=== PATIENT | female | born 1940 | race Caucasian/White ===

== ENCOUNTER 2016-05-27 08:57 | Emergency (ER) | payer MEDICARE, OTHER ==
[~2016-05-27] VITALS: Ht 177.8 cm; Wt 95.3 kg
[~2016-05-27 08:57] MED LIST: AMLODIPINE10 MG PO; ASPIRIN 81MG TA81 MG PO; GEMFIBROZIL600 MG PO; HYDROCODONE-APA1 TA1 PO; LEVOFLOXACIN 7750 M1 PO; LEVOTHYROXIN0.112 M1 PO; LISINOPRIL10 MG PO; METFORMIN1000 MG PO; PRAVACHOL20 MG PO; ZOLPIDEM5 MG PO
[2016-05-27] MEDS ORDERED: ZANTAC 150150 MG PO (09:23)
[2016-05-27] MEDS ORDERED: AMITRIPTYLINE 225 MG PO (09:24)
[2016-05-27] MEDS ORDERED: PLAVIX 75MG TAB75 MG PO (09:24)
[2016-05-27] MEDS ORDERED: MOBIC15 MG PO (09:25)
[2016-05-27] MEDS ORDERED: MIRALAX17 GM/PACK PO (10:06)
--- NOTE | 2016-05-27 10:08 | [facility]gent [facility] Report ---
History of Present Issue Date/Time Seen by Provider 05/27/16 0940 Visit Reason Pt arrived:Walked Presenting Problem:PT STATES SHE HAS HAD LRQ PAIN SINCE LAST THURSDAY, PAIN HAS NOT GONE AWAY. PT STATES SHE HAS BEEN BELCHING AND SHE TOOK A STOOL SOFTNER TO HAVE A BOWEL MOVEMENT. PT STATES SHE VOMITED COFFEE YESTERDAY. MOSTLY JUST HAS PAIN. Location if Accident: Onset of symptoms date/time:/ or onset unknown for:MEDICAL HX UNKNOWN Have you (or family members/close friends) recently traveled outside the [place]? N If Yes, where/when: Have you had exposure to infectious disease within the past month? TB? Other? Specify: Patient state that she was having issues with constipation and took an over the counter stool softner states that ever since then she has not had a good bowel movement and been having some achy like pain in her right lower abdomen states that she noticed after she eat she was belching more and had her gallbladder removed years ago. States that she thinks she is still constipated ALLERGIES Coded Allergies: No Known Allergies (05/27/16) Home Medications Active Scripts HYDROCODONE 5MG/APAP 325MG (Hydrocodon-Acetaminophen 5-325) 1 TAB PO Q6HP PRN MODERATE PAIN #120 TAB Prov: 06/13/14 Levofloxacin (Levofloxacin 750MG) 750 MG PO DAILY #7 TABLET Prov: 06/13/14 Reported Medications Levothyroxine Sodium (Levothyroxine 0.112MG) 0.112 MG PO DAILY Lisinopril 10 MG PO DAILY Amlodipine Besylate (Amlodipine) 10 MG PO DAILY Gemfibrozil (GEMFIBROZIL 600MG) 600 MG PO BID METFORMIN HCL (Metformin) 1,000 MG PO BID ASPIRIN (Aspirin) 81 MG PO DAILY Zolpidem Tartrate (Zolpidem 5MG) 5 MG PO QHS Pravastatin Sodium (Pravachol) 20 MG PO QHS #30 Ranitidine Hcl (Zantac) 150 MG PO DAILY Amitriptyline Hcl (Amitriptyline) 25 MG PO QHS CLOPIDOGREL BISULFATE (PLAVIX) 75 MG PO DAILY Meloxicam (Mobic 15MG) 15 MG PO BID History Medical History General CAD? No Angina: No [place]: No Hypertension? Yes Hyperlipidemia? Yes CHF? No COPD? No Asthma? No Anemia? No Hernia? No Thyroid Problems? Yes Hypothyroidism? Yes CVA? Yes Seizures? No Diabetes? Yes Insulin Dependent: No Insulin Pump: No Home FSBS? No UTI? No Stones? No GB Disease: No Nephritic Syndrome? No Asplenia? No Hepatitis? Yes Sickle Cell Disease? No Arthritis? Yes Cataracts? No Glaucoma? No MRSA? No TB? No Cancer? No Immunization HX DT/Tetanus Unknown Flu Refused Pneumonia Refuses Surgical Hx Previous Surgery?Y NODULE REMOVED FROM THYRO HYSTERECTOMY FX RT LEG Family History Family HX Diabetes Yes CAD No Hypertension Yes Hyperlipidemia Yes Cancer No TB No Social History Smoking Hx Smoker: Never Smoker Tobacco: No Alcohol Alcohol: No Review of Systems All Other Systems Reviewed and Negative Gastrointestinal abdominal pain, other (Rt lower abdomen cramping ) Physical Exam Vital Signs Vital Signs Date Time Temp Pulse Resp B/P Pulse O2 O2 Flow FiO2 Ox Delivery Rate 05/27 0916 97.6 108 18 102/61 97 General Appearance normal appearance, WD/WN, no apparent distress Respiratory Status Yes: trachea midline, chest symmetrical, non tender chest. No: respiratory distress. Cardiovascular normal exam, regular rate/rhythm, no peripheral edema, no gallop, no JVD, no murmur Gastrointestinal normal bowel sounds, normal exam, non tender, no pulsatile mass , no guarding, no rebound Neurologic alert, claims adjudicator II-XII nml as tested, normal exam Comments Recommended Abdomen flat and upright and patient refused states that she knew she was constipated and didn't want to have an xray Medical Decision Making LABS/Meds/Orders Pt receiving controlled substance in ED? No Departure Departure Time of Disposition 1003 Disposition DC Home or Self Care(routine) Clinical Impression Primary Impression: Constipation Qualifiers: Constipation type: unspecified constipation type Qualified Code: K59.00 - Constipation, unspecified Condition STABLE Referrals SALO CARROLL APRN (Family) Patient Instructions DI for Constipation, DIET-CONSTIPATION NUTRI. [facility], Increased Dietary Fiber May Improve Constipation Conditions With Pelvic Sonny Additional Instructions Drink plenty of fluids Take medication as prescribed Follow up with family doctor Return if needed Discharge Counseling Counseled pt/family regarding diagnosis, medications/RX, home care, follow up needs Prescriptions Current Visit Scripts Polyethylene Glycol 3350 (Miralax) 17 GM PO DAILY #1 BOTTLE Ref 2 DISSOLVE IN 8 OZ BEVERAGE Comments Patient refuse recommended xray at 1007
[2016-05-27 10:12] VITALS: BP 102/61
== END 2016-05-27 10:13 | disposition home or self-care (01) ==
LOC: UTC 08:57
DX: K59.00 Constipation, unspecified (principal); I10 Essential (primary) hypertension; E11.9 Type 2 diabetes mellitus without complications